=== PATIENT | male | born 1980 | race Caucasian/White ===

== ENCOUNTER 2023-01-12 11:19 | Outpatient (CLI) | payer OTHER ==
--- NOTE | 2023-01-12 18:21 | XRAY Report ---
PROCEDURE: Lumbar Spine 2 View INDICATIONS: LUMBAR RADICULOPATHY RIGHT TECHNIQUE: 3 views of the lumbar spine were acquired. COMPARISON: None. FINDINGS: Bones: 5 [id number]-[id number]-[id number] vertebrae are present. 3 mm retrolisthesis L5 on S1, 2 mm retrolisthesis L 3 on L4, 4 mm which listhesis L2 on L3 4 mm which listhesis at L1 on L2. No lumbar vertebral body com pression fracture visualized. Moderate multilevel degenerative changes with disc height loss, endplat e spurring, and facet arthropathy. Soft tissues: Overlying bowel gas pattern is normal. No suspicious soft tissue calcifications. IMPRESSION: Multilevel degenerative changes of the lumbar spine. Reviewed by: Nathaniel Bae MD on 01/12/2023 6:20 PM PDT Approved by: Nathaniel Bae MD on 01/12/2023 6:20 PM PDT Station ID: [id number]
== END 2023-01-12 11:20 | disposition home or self-care (01) ==
LOC: DI 11:19
PROVIDERS: ATTEND Registered Nurse
DX: M43.16 Spondylolisthesis, lumbar region (principal); M43.17 Spondylolisthesis, lumbosacral region; M47.26 Other spondylosis with radiculopathy, lumbar region; M51.16 Intervertebral disc disorders with radiculopathy, lumbar region

== ENCOUNTER 2023-08-08 10:37 | Emergency (ER) | payer OTHER ==
[2023-08-08 12:38] LABS: ALBUMIN 4.6 g/dL (3.2-5.5); ALBUMIN/GLOBULIN RATIO 1.6 (1.0-2.2); BILIRUBIN,TOTAL 0.5 mg/dL (0.2-1.0); CALCIUM 10.2 mg/dL (8.5-10.3); CREATININE 1.1 mg/dL (0.6-1.3); MAGNESIUM 1.8 mg/dL (1.7-2.3); POTASSIUM 4.5 mmol/L (3.5-4.5); TOTAL PROTEIN 7.5 g/dL (6.4-8.9)
--- NOTE | 2023-08-08 13:29 | ED Physician Documentation ---
History of Present Illness - Stated complaint Stated Complaint: HIGH BP,FRANK,DIZZINESS - Chief complaint Chief Complaint: General - Additonal information Additional information: 43-year-old male presents emergency department for hypertension. Patient says that his amlodipine was recently increased about 2 weeks ago since then he has been feeling off, fuzzy, With a couple episodes of diarrhea. Patient is also worried about new left thumb twitching. He has no shortness of breath no chest pain no nausea or vomiting. He does endorse a mild headache with no vision changes. He is voiding without any difficulty or changes. he denies any chest pain or shortness of breath no back pain. PD PAST MEDICAL HISTORY - Past Medical History Past Medical History: Yes Cardiovascular: Hypertension, High cholesterol Psych: Depression, Anxiety Musculoskeletal: Gout - Present Medications Home Medications: Ambulatory Orders Medication Instructions Recorded Confirmed Gabapentin [Neurontin] 100 mg PO DAILY 08/08/23 08/08/23 Losartan Potassium mg pe PO DAILY 08/08/23 Rosuvastatin Calcium [Crestor] 40 mg PO DAILY 08/08/23 08/08/23 allopurinoL [Allopurinol] 300 mg PO BID 08/08/23 08/08/23 amLODIPine [Norvasc] 10 mg PO DAILY 08/08/23 08/08/23 - Allergies Allergies/Adverse Reactions: Allergies Allergy/AdvReac Type Severity Reaction Status Date / Time Penicillins Allergy Unknown Verified 08/08/23 10:45 lisinopril AdvReac Hallucinati Verified 08/08/23 10:46 ons - Social History Does the pt smoke?: No Smoking Status: Never smoker PD ED PE NORMAL - Vitals Vital signs reviewed: Yes - General General: Alert and oriented X 3, No acute distress, Well developed/nourished - Cardiac Cardiac: RRR, No murmur, No gallop, Strong equal pulses - Respiratory Respiratory: No respiratory distress, Clear bilaterally - Abdomen Abdomen: Normal bowel sounds, Soft, Non tender - Back Back: No CVA TTP - Derm Derm: Normal color, Warm and dry, No rash - Extremities Extremities: Other (1+ bilateral pitting edema) - Neuro Neuro: Alert and oriented X 3 - Psych Psych: Normal mood Results - Vitals Vitals: Vital Signs - 24 hr 08/08/23 08/08/23 10:46 13:51 Temperature 36.5 C Heart Rate 73 75 Respiratory 15 16 Rate Blood Pressure 162/92 H 143/95 H O2 Saturation 99 98 Oxygen O2 Source Room air - Labs Labs: Laboratory Tests 08/08/23 08/08/23 12:12 13:45 Sodium 137 Potassium 4.5 Chloride 101 Carbon Dioxide 29 Anion Gap 7.0 BUN 10 Creatinine 1.1 Estimated GFR (MDRD) 74 L Glucose 107 H Calcium 10.2 Magnesium 1.8 Total Bilirubin 0.5 AST 55 H ALT 88 H Alkaline Phosphatase 70 Total Protein 7.5 Albumin 4.6 Globulin 2.9 Albumin/Globulin Ratio 1.6 Nasal Adenovirus (PCR) NOT DETECTED Nasal B. parapertussis DNA (PCR) NOT DETECTED Nasal Coronavir 229E PCR NOT DETECTED Nasal Coronavir HKU1 PCR NOT DETECTED Nasal Coronavir NL63 PCR NOT DETECTED Nasal Coronavir OC43 PCR NOT DETECTED Nasal Enterovir/Rhinovir PCR NOT DETECTED Nasal Influenza B PCR NOT DETECTED Nasal Influenza A PCR NOT DETECTED Nasal Parainfluen 1 PCR NOT DETECTED Nasal Parainfluen 2 PCR NOT DETECTED Nasal Parainfluen 3 PCR NOT DETECTED Nasal Parainfluen 4 PCR NOT DETECTED Nasal RSV (PCR) NOT DETECTED Nasal B.pertussis DNA PCR NOT DETECTED Nasal C.pneumoniae (PCR) NOT DETECTED Mehul Human Metapneumo PCR NOT DETECTED Nasal M.pneumoniae (PCR) NOT DETECTED Nasal SARS-CoV-2 (PCR) NOT DETECTED PD Medical Decision Making - ED course ED course: 43-year-old male presents emergency department for hypertension. CMP was complete which did not show any electrolyte abnormalities GFR is 74, glucose is 107, AST 55 ALT 88. Patient does endorse an recently starting showing nicotine and does endorsing frequent alcohol use. He adamantly denies any chest pain shortness of breath. He does not appear to be having any hypertensive emergency and no endorgan damage. Patient was advised to cut back on alcohol quit nicotine and make some lifestyle modification to help with his hypertension as he says that he does not want to be on antihypertensives anymore. He was told to follow-up with primary care provider before discontinuing any antihypertensive medications. Respiratory swab was negative. Patient given return precautions safer discharge. Departure - Departure Disposition: 01 Home, Self Care Clinical Impression: Hypertension Qualifiers: Hypertension type: primary hypertension Qualified Code(s): I10 - Essential (primary) hypertension Instructions: Hypertension Control, Choices Low Salt Comments: Thank you for trusting us with your care. Please follow-up with your primary care provider about discussion of hypertension medication modifications such as discontinue amlodipine and starting on something else or possibly increasing her losartan. Avoid alcohol and nicotine to help with your hypertension. Your AST and ALT are slightly elevated which could be related to alcohol use you can h ave these labs reevaluated by your primary care provider to trend them to see if they are going up or down. Please come back to the emergency department if started to have any chest pain, shortness of breath, or any other concerning emergent symptoms. Forms: PCP List Discharge Date/Time: 08/08/23 13:52
[2023-08-08 13:55] VITALS: BP 143/95; O2SAT 98
[2023-08-08 15:07] LABS: B. PARAPERTUSSIS- RESP PCR PAN NOT DETECTED; B. PERTUSSIS- RESP PCR PANEL NOT DETECTED; C. PNEUMONIAE- RESP PCR PANEL NOT DETECTED; CORONAVIRUS 229E-RESP PCR NOT DETECTED; CORONAVIRUS HKU1-RESP PCR NOT DETECTED; CORONAVIRUS NL63-RESP PCR NOT DETECTED; CORONAVIRUS OC43-RESP PCR NOT DETECTED; HUMAN METAPNEUMOVIRUS NOT DETECTED; INFLUENZA A- RESP PCR PANEL NOT DETECTED; INFLUENZA B - RESP PCR PANEL NOT DETECTED; M. PNEUMONIAE- RESP PCR PANEL NOT DETECTED; PARAINFLUENZA VIRUS 1 NOT DETECTED; PARAINFLUENZA VIRUS 2 NOT DETECTED; PARAINFLUENZA VIRUS 3 NOT DETECTED; PARAINFLUENZA VIRUS 4 NOT DETECTED; RHINOVIRUS/ENTEROVIRUS NOT DETECTED; RSV- RESP PCR PANEL NOT DETECTED; SARS-CoV-2 -RESP PCR PANEL NOT DETECTED
== END 2023-08-08 13:52 | disposition home or self-care (01) ==
LOC: ED 10:37
DX: I10 Essential (primary) hypertension (principal)
CPT/HCPCS: 36415; 80053; 83735; 87633; 99283